=== PATIENT | female | born 1970 | race Caucasian/White ===

== ENCOUNTER → 2023-08-31 07:55 | Outpatient (CLI) | payer OTHER, SELFPAY ==
[2023-08-31 08:58] LABS: COVID-19 CEPHEID 4-PLEX PCR Negative (Negative); Influenza A - CEPHEID Flu A NEGATIVE (NEGATIVE); Influenza B - CEPHEID Flu B NEGATIVE (NEGATIVE); Respiratory Syncytial Virus Negative (Negative)
== END ==
PROVIDERS: PCP Family Medicine; Visit Provider Physician Assistant Surgical
DX: R50.9 Fever, unspecified (principal); R05.9 Cough, unspecified
CPT/HCPCS: 0241U

== ENCOUNTER → 2023-08-31 08:12 | Outpatient (CLI) | payer OTHER, SELFPAY ==
--- NOTE | 2023-08-31 08:15 | DI.RAD.S_ITS ---
PROCEDURE: XR CHEST 2V INDICATIONS: Rhonchi on exam TECHNIQUE: 2 views of the chest were acquired. COMPARISON: None. FINDINGS: Surgical changes and devices: Surgical clips are noted in right adnexa and right hilar region. Lungs and pleura: Lungs are clear. No pleural effusions or pneumothorax. Mediastinum: Mediastinal contours are normal. Heart size is normal. Bones and chest wall: No suspicious bony abnormalities. Soft tissues appear unremarkable. IMPRESSION: No acute cardiopulmonary pathology. Dictated by: Giuseppe Hernandez M.D. on 08/31/2023 at 8:29 Approved by: Giuseppe Hernandez M.D. on 08/31/2023 at 8:29
== END ==
PROVIDERS: PCP Family Medicine; Referring Provider Physician Assistant Surgical; Visit Provider Physician Assistant Surgical
DX: R09.89 Other specified symptoms and signs involving the circulatory and respiratory systems (principal); R50.9 Fever, unspecified; R05.9 Cough, unspecified
CPT/HCPCS: 0241U; 71046

== ENCOUNTER → 2023-12-27 17:25 | Outpatient (CLI) | payer OTHER, SELFPAY ==
[2023-12-27 18:42] LABS: Alanine Aminotransferase 30 IU/L (<35); Albumin 4.1 g/dL (3.5-5.0); Albumin Globulin Ratio 1.4 (1.0-2.8); Alkaline Phosphatase 59 U/L (38-126); Aspartate Aminotransferase 26 IU/L (14-36); BUN Creatinine Ratio 16.3 (6-22); Bilirubin Total 0.4 mg/dL (0.2-1.3); Blood Urea Nitrogen 14 mg/dL (7-17); Calcium 9.2 mg/dL (8.4-10.2); Carbon Dioxide 30 mmol/L (22-32); Chloride 102 mmol/L (98-107); Estimated Glomerular Filt Rate > 60 mL/min (>60); Glucose 148 mg/dL (70-100); HEMOLYSIS < 15 (0-50); Potassium 3.8 mmol/L (3.4-5.1); Sodium 137 mmol/L (137-145); Total Protein 7.1 g/dL (6.3-8.2)
[2023-12-27 21:25] LABS: Follicle Stimulating Hormone 7.72 mIU/mL
[2023-12-27 21:41] LABS: Estradiol, Total 12.2 pg/mL
== END ==
PROVIDERS: PCP Family Medicine
DX: C50.111 Malignant neoplasm of central portion of right female breast (principal)
CPT/HCPCS: 36415; 80053; 82670; 83001

== ENCOUNTER 2024-03-06 09:36 | Day surgery (SDC) | payer OTHER, SELFPAY ==
[2024-03-06 09:48] VITALS: BP 115/72; PULSE 55; RESP 14; TEMP 36.7; O2SAT 100
--- NOTE | 2024-03-06 10:52 | PM.HP.1 ---
History of Present Illness History of Present Illness Date Patient Seen: 03/06/24 Time Patient Seen: 10:52 Chief complaint: Screening Colonoscopy Narrative: 53-year-old woman here for screening colonoscopy. She has had a previous colonoscopy in the remote past which was normal. She has a history of diverticular disease nothing recently. No family history of colon cancer in first-degree relatives. No abdominal concerns today. [facility] Medical History Sleep apnea (~2017) Brain aneurysm (~1988) Migraines (~1987) Headache (~1987) Shoulder pain (~2017) Infertility (~2011) Hypothyroidism History of breast cancer in female Postmenopausal bleeding Surgical History Anesthesia History of mastectomy (~2023) History of transvaginal ultrasound History of section (~2014) History of tonsillectomy (~1977) Family History Father Cancer Diabetes mellitus Hyperlipidemia Mother Hypothyroidism Brother Cancer Grandmother History of heart disease Social History Smoking Status: Never smoker alcohol intake: current Meds Home Medications and Allergies Home Medications Medication Instructions Recorded Confirmed Type letrozole 2.5 mg tablet 2.5 mg PO DAILY 07/08/23 03/06/24 History peg 3350-sod sulf,xrnzq-lvn-rrn 1,000 ml PO DIRECTED #2,000 mL 01/24/24 Rx 178.7-7.3-0.5-1.12-0.9 gram oral soln (Suflave) Allergies Allergy/AdvReac Type Severity Reaction Status Date / Time No Known Drug Allergies Allergy Verified 03/06/24 09:45 Exam Vital Signs (past 8 hours): - 03/06/24 09:48 Temperature 98.0 F Pulse Rate 55 L Respiratory Rate 14 Blood Pressure 115/72 Pulse Oximetry 100 Oxygen Delivery Method Room Air Oxygen Delivery Method Room Air Narrative Exam Narrative: General adult woman alert oriented no acute distress Chest nonlabored respiration Extremities warm well perfused Assessment & Plan Assessment & Plan narrative: The patient requires colorectal screening and colonoscopy is recommended. Technical details were discussed. Risks, benefits, alternatives explained. Risks including but not limited to myocardial infarction, aspiration, bleeding, pain, missed lesion, incomplete examination, need for further radiographic studies, intestinal injury, and need for major abdominal surgery were discussed. All questions were answered to their satisfaction, and they are in agreement with this plan. Time-Based Coding :: [TOTAL MINUTES] spent with patient and on the chart (including review of chart, obtaining history, exam, reviewing outside data, placing orders, documenting exam and treatment plan, and counseling patient) on [DATE].
[2024-03-06 11:21] VITALS: BP 108/73; PULSE 57; RESP 12; TEMP 36.3; O2SAT 96
--- NOTE | 2024-03-06 11:26 | P.OP.COLON_ITS ---
Operative Date/Time/Diagnoses Date of procedure: 03/06/24 Time of procedure: : Pre-op diagnosis: Colorectal screening Procedure & Clinicians Study performed: Screening colonoscopy Same procedure as scheduled: Yes Indications: Screening Surgeon: Tramaine Iqbal Procedure Notes Procedure in detail: The history and physical was performed/updated and the patient is ASA class is 2. The procedure was discussed in detail with the patient. Potential risks complications including infection, bleeding, missed diagnosis, perforation, need for surgery, and were explained. Their questions were answered and informed consent was obtained. Patient was brought to the procedure room and placed standard monitoring equipment. The patient's vital signs were monitored continuously throughout the entire procedure. Prior to starting time-out was performed. The patient was placed in the left lateral recumbent position. Procedural sedation was administered by anesthesia. Examination began with a thorough inspection of the perianal area there was no evidence of fissures, fistulae, external hemorrhoids or cutaneous malignancy. The colonoscopy scope was then placed into the anal canal and was advanced to the cecum, which was identified by the ileocecal valve, the appendiceal orifice and the confluence of the taenia. The scope was then slowly withdrawn examining colon thoroughly in all directions, irrigating it of any residual stool. The scope was retroflexed within the rectum The patient tolerated the procedure well. They will be discharged once criteria are met. The prep was of good/excellent quality. The withdrawl time was 7 minutes. FINDINGS * Unremarkable colonoscopy. Normal healthy colonic mucosa without mass or polyps. Specimen(s): none sent Impression: Normal colonoscopy Post-procedure Recommendations: Colonoscopy in 10 years Disposition: same day surgery
[2024-03-06 11:28] VITALS: BP 110/75; PULSE 66; RESP 17; O2SAT 96
[2024-03-06 11:32] VITALS: BP 119/75; PULSE 50; RESP 14; TEMP 36.7; O2SAT 99
[2024-03-06 11:36] VITALS: BP 127/87; PULSE 53; RESP 15; O2SAT 99
== END 2024-03-06 12:06 | disposition home or self-care (01) ==
PROVIDERS: PCP Family Medicine; Referring Provider Surgery; Visit Provider Surgery
PROC: 0DJD8ZZ Inspection of Lower Intestinal Tract, Via Natural or Artificial Opening Endoscopic (ICD-10-PCS; CPT 45378; principal; 2024-03-06 10:30)
DX: Z12.11 Encounter for screening for malignant neoplasm of colon (principal)
CPT/HCPCS: 45378; J2704

== ENCOUNTER → 2024-06-07 09:52 | Outpatient (CLI) | payer OTHER, SELFPAY ==
[2024-06-07 10:49] LABS: COVID-19 CEPHEID 4-PLEX PCR Negative (Negative); Influenza A - CEPHEID Flu A POSITIVE (NEGATIVE); Influenza B - CEPHEID Flu B NEGATIVE (NEGATIVE); Respiratory Syncytial Virus POSITIVE (Negative)
== END ==
PROVIDERS: PCP Family Medicine; Visit Provider Physician Assistant Medical
DX: R50.9 Fever, unspecified (principal)
CPT/HCPCS: 0241U

== ENCOUNTER → 2024-06-07 09:54 | Outpatient (CLI) | payer OTHER, SELFPAY ==
--- NOTE | 2024-06-07 09:56 | DI.RAD.S_ITS ---
PROCEDURE: XR CHEST 2V INDICATIONS: Cough TECHNIQUE: 2 views of the chest were acquired. COMPARISON: [facility], CR, XR CHEST 2V, 08/31/2023, 8:14. FINDINGS: Surgical changes and devices: Stable right mastectomy and right axillary surgical clips. Lungs and pleura: Lungs are clear. No pleural effusions or pneumothorax. Mediastinum: Mediastinal contours are normal. Heart size is normal. Bones and chest wall: No suspicious bony abnormalities. Soft tissues appear unremarkable. IMPRESSION: No acute cardiopulmonary abnormality is seen. Dictated by: Alisson Walker MD, PhD on 06/07/2024 at 10:17 Approved by: Alisson Walker MD, PhD on 06/07/2024 at 10:17
== END ==
PROVIDERS: PCP Family Medicine; Referring Provider Physician Assistant Medical; Visit Provider Physician Assistant Medical
DX: R05.9 Cough, unspecified (principal); R50.9 Fever, unspecified
CPT/HCPCS: 0241U; 71046

== ENCOUNTER → 2024-09-26 08:26 | Outpatient (CLI) | payer OTHER, SELFPAY ==
[2024-09-26 09:37] LABS: Add Manual Diff / Slide Review NO; Basophils Absolute Auto 0 /uL (0-100); Basophils Percent Auto 0.2 % (0-2); Eosinophils Absolute Auto 100 /uL (0-450); Eosinophils Percent Auto 1.4 % (2-4); Hematocrit 39.7 % (36-46); Hemoglobin 13.4 g/dL (12.0-16.0); Lymphocytes Absolute Auto 1300 /uL (1100-4500); Lymphocytes Percent Auto 33.7 % (25-40); Mean Corpuscular HGB Conc 33.8 % (30-36); Mean Corpuscular Hemoglobin 29.7 PG (26-34); Mean Corpuscular Volume 87.9 fL (80-100); Monocytes Absolute Auto 400 /uL (0-900); Monocytes Percent Auto 11.2 % (3-14); Neutrophils Absolute Auto 2100 /uL (1500-7000); Neutrophils Percent Auto 53.5 % (50-75); Platelet Count 211 X10^3/uL (150-400); Red Blood Cell Count 4.51 X10^6/uL (4.0-5.2); Red Cell Distribution Width 12.7 % (11.6-14.8); White Blood Cell Count 3.9 X10^3/uL (4.5-11.0)
[2024-09-26 09:55] LABS: Alanine Aminotransferase 27 IU/L (<35); Albumin 4.4 g/dL (3.5-5.0); Albumin Globulin Ratio 1.8 (1.0-2.8); Alkaline Phosphatase 75 U/L (38-126); Aspartate Aminotransferase 27 IU/L (14-36); BUN Creatinine Ratio 21.1 (6-22); Bilirubin Total 0.6 mg/dL (0.2-1.3); Blood Urea Nitrogen 16 mg/dL (7-17); Calcium 9.4 mg/dL (8.4-10.2); Carbon Dioxide 28 mmol/L (22-32); Chloride 104 mmol/L (98-107); Cholesterol 252 mg/dL (140-199); Estimated Glomerular Filt Rate > 60 mL/min (>60); Globulin 2.5 g/dL (1.7-4.1); Glucose 81 mg/dL (70-99); HDL Cholesterol 52 mg/dL (40-60); HEMOLYSIS < 15 (0-50); LDL Cholesterol Calculated 166 mg/dL (<100); Potassium 4.2 mmol/L (3.4-5.1); Sodium 140 mmol/L (137-145); Total Protein 6.9 g/dL (6.3-8.2); Triglycerides 170 mg/dL (35-150)
[2024-09-26 10:30] LABS: TSH w/ Reflex to FT4 5.31 uIU/mL (0.47-4.68)
[2024-09-26 10:51] LABS: Vitamin D 25 Hydroxy (D3) 38.4 ng/mL (30.0-100.0)
[2024-09-26 11:44] LABS: Free T4, Direct Thyroxine 1.04 ng/dL (0.78-2.19)
== END ==
PROVIDERS: Family Provider Family Medicine; PCP Family Medicine; Referring Provider Family Medicine; Visit Provider Family Medicine
DX: I67.1 Cerebral aneurysm, nonruptured (principal); G47.30 Sleep apnea, unspecified; E03.9 Hypothyroidism, unspecified; Z85.3 Personal history of malignant neoplasm of breast
CPT/HCPCS: 36415; 80053; 80061; 82306; 84439; 84443; 85025

== ENCOUNTER → 2025-02-23 09:29 | Outpatient (CLI) | payer OTHER, SELFPAY ==
[2025-02-23 11:10] LABS: Add Manual Diff / Slide Review NO; Hematocrit 42.2 % (36-46); Hemoglobin 14.5 g/dL (12.0-16.0); Lymphocytes Absolute Auto 1500 /uL (1100-4500); Mean Corpuscular HGB Conc 34.3 % (30-36); Mean Corpuscular Hemoglobin 29.5 PG (26-34); Mean Corpuscular Volume 85.9 fL (80-100); Platelet Count 191 X10^3/uL (150-400)
[2025-02-23 11:18] LABS: Hemoglobin A1C% w Est Avg Glu 5.2 % (4.0-6.0)
[2025-02-23 11:29] LABS: Cholesterol 257 mg/dL (140-199); HDL Cholesterol 55 mg/dL (40-60); Triglycerides 154 mg/dL (35-150)
[2025-02-23 11:57] LABS: TSH w/ Reflex to FT4 4.75 uIU/mL (0.47-4.68)
[2025-02-23 12:22] LABS: Free T4, Direct Thyroxine 1.09 ng/dL (0.78-2.19)
== END ==
PROVIDERS: Family Provider Family Medicine; PCP Family Medicine; Referring Provider Family Medicine; Visit Provider Family Medicine
DX: Z13.1 Encounter for screening for diabetes mellitus (principal); M54.13 Radiculopathy, cervicothoracic region; I67.1 Cerebral aneurysm, nonruptured; G47.30 Sleep apnea, unspecified; E03.9 Hypothyroidism, unspecified; Z85.3 Personal history of malignant neoplasm of breast
CPT/HCPCS: 36415; 80061; 83036; 84439; 84443; 85025